=== PATIENT | female | born 1995 | race Caucasian/White ===

== ENCOUNTER 2021-11-17 14:39 | Emergency (ER) | payer OTHER ==
--- OUTSIDE RECORDS SUMMARY | 2021-11-17 15:08 | EXTERNAL MEDICAL SUMMARY RPT | Continuity of Care Document ---
:1995 Author Organization [facility] Address [address] [place] [address] Phone Care Team Providers Name Role Phone LUCINDA, Loyd Porter Unavailable Unavailable Allergies No information. Encounters No information. Medications No information. Problems date description facility 20211019 Pain in throat All 20211019 Acute pharyngitis, unspecified All 20211019 Acute pharyngitis All Procedures date description facility 20211019 POC STREP TEST All Results test status date ordered by attending specimen pepe e Streptococcus_pyogenes unknown 20211019 unknown unknown unknown _DNA_Presence_in_Throat _by_NAA_with_probe_dete ction Microbial_identificati unknown 20211019 unknown unknown unknown on_kit_rapid_strep_meth od facility observation status value reference units lab abnor mal line range code notes All Streptococcus unknown Neg unknown _6048 unknow n unknown _pyogenes_DNA_ 9-2 Presence_in_Th roat_by_NAA_wi th_probe_detec tion All Microbial_ide unknown Neg unknown _3554 unknow n unknown ntification_ki t_rapid_strep_ method Vital Signs date measurement value source 20211019 weight_standard 180 lb 20211019 weight_metric 81.65 kg 20211019 temperature_standard 98.1 F 20211019 temperature_metric 36.72 C 20211019 respiration_rate 14 /min 20211019 height_standard 66 in 20211019 height_metric 167.64 cm 20211019 heart_rate 75 /min 20211019 BP_systolic 120 mm[Hg] 20211019 BP_diastolic 82 mm[Hg] 20211019 BMI 29.16 kg/m2
[2021-11-17 15:11] LABS: BASOPHILS % (AUTO) 0.5 %; EOSINOPHILS # (AUTO) 0.1 10^3/uL (0.0-0.7); EOSINOPHILS % (AUTO) 1.1 %; HCT - HEMATOCRIT 41.1 % (37.0-47.0); HGB - HEMOGLOBIN 14.2 g/dL (12.0-16.0); LYMPHOCYTES # (AUTO) 0.9 10^3/uL (1.5-3.5); LYMPHOCYTES % (AUTO) 15.5 %; MEAN CORPUSCULAR HEMOGLOBIN 28.5 pg (27.0-31.0); MEAN CORPUSCULAR HGB CONC 34.5 g/dL (32.0-36.0); MEAN CORPUSCULAR VOLUME 82.4 fL (81.0-99.0); MEAN PLATELET VOLUME 10.9 fL (7.9-10.8); MONOCYTES # (AUTO) 0.7 10^3/uL (0.0-1.0); MONOCYTES % (AUTO) 12.1 %; NEUTROPHILS # (AUTO) 3.9 10^3/uL (1.5-6.6); NEUTROPHILS % (AUTO) 70.6 %; PLT - PLATELET COUNT 258 10^3/uL (130-450); RED BLOOD COUNT 4.99 10^6/uL (4.20-5.40); RED CELL DISTRIBUTION WIDTH 12.6 % (12.0-15.0); WHITE BLOOD COUNT 5.6 x10^3/uL (4.8-10.8)
--- NOTE | 2021-11-17 15:13 | ED Physician Documentation ---
History of Present Illness - Stated complaint Stated Complaint: NAUSEA,DIZZINESS,ABD PX - Chief complaint Chief Complaint: Abd Pain - Additonal information Additional information: 26-year-old female presents emergency department for evaluation of acute lower abdominal/pelvic pain. She reports this morning she woke up feeling a little nauseated and dizzy but did not think much of it. Just prior to arrival she was on the floor at home playing with her kids and she laid on her stomach and felt a sudden sharp pain in her lower abdomen that caused her to cry immediately. Though the pain has abated somewhat she still feels it. She doubts possibility of she has an IUD in place for the last 2 months. However her first IUD was complicated by migration of the IUD into the myometrium. She is concerned that this has happened again. Since the second IUD was placed she has not been able to feel the strings. No fevers, no vomiting. No dysuria urgency or frequency. Past medical/surgical history includes x2 only Review of Systems Constitutional: reports: Reviewed and negative Ears: reports: Reviewed and negative Nose: reports: Reviewed and negative Throat: reports: Reviewed and negative Cardiac: reports: Reviewed and negative Respiratory: reports: Reviewed and negative GI: reports: Abdominal Pain, Nausea : reports: Reviewed and negative Skin: reports: Reviewed and negative Musculoskeletal: reports: Reviewed and negative PD PAST MEDICAL HISTORY - Allergies Allergies/Adverse Reactions: Allergies Allergy/AdvReac Type Severity Reaction Status Date / Time No Known Drug Allergies Allergy Verified 11/17/21 14:48 PD ED PE NORMAL - General General: Alert and oriented X 3, No acute distress - HEENT HEENT: Atraumatic, Moist mucous membranes - Neck Neck: Supple, no meningeal sign - Cardiac Cardiac: RRR, No murmur - Respiratory Respiratory: No respiratory distress - Abdomen Abdomen: Normal bowel sounds, Soft, Non tender (Mild tenderness in the lower pelvic suprapubic region without guarding or rebound. Nonlocalizing.) - Female Female : Movement Therapist present, Other (Chaperoned pelvic exam reveals IUD strings exiting the cervix. No CMT or adnexal tenderness. Mild tenderness of the uterus without enlargement felt) - Back Back: No CVA TTP, No spinal TTP Results - Vitals Vitals: Vital Signs - 24 hr 11/17/21 14:46 Temperature 36.8 C Heart Rate 88 Respiratory 16 Rate Blood Pressure 133/75 H O2 Saturation 98 Oxygen O2 Source Room air - Labs Labs: Laboratory Tests 11/17/21 11/17/21 11/17/21 15:03 15:03 15:10 WBC 5.6 RBC 4.99 Hgb 14.2 Hct 41.1 MCV 82.4 MCH 28.5 MCHC 34.5 RDW 12.6 Plt Count 258 MPV 10.9 H Neut # (Auto) 3.9 Lymph # (Auto) 0.[address] [place] # (Auto) 0.7 Eos # (Auto) 0.1 Baso # (Auto) 0.0 Absolute Nucleated RBC 0.00 Nucleated RBC % 0.0 Sodium 138 Potassium 3.9 Chloride 105 Carbon Dioxide 25 Anion Gap 8.0 BUN 11 Creatinine 0.7 Estimated GFR (MDRD) 101 Glucose 105 H Calcium 8.8 Total Bilirubin 0.8 AST 21 ALT 22 Alkaline Phosphatase 88 Total Protein 7.4 Albumin 4.1 Globulin 3.3 Albumin/Globulin Ratio 1.2 Lipase 36 Urine Color YELLOW Urine Clarity CLEAR Urine pH 6.5 Ur Specific Crow[place] 1.025 Urine Protein NEGATIVE Urine Glucose (UA) NEGATIVE Urine Ketones TRACE Urine Occult Blood NEGATIVE Urine Nitrite NEGATIVE Urine Bilirubin NEGATIVE Urine Urobilinogen 0.2 (NORMAL) Ur Leukocyte Esterase NEGATIVE Ur Microscopic Review NOT INDICATED Urine Culture Comments NOT INDICATED Urine HCG, Qual NEGATIVE - Rads (name of study) pelvic US Radiology: Final report received (IUD in place. Right ovarian hemorrhagic cyst. Both ovaries show flow Small amount of free fluid in the adnexa) PD MEDICAL DECISION MAKING - ED course Complexity details: reviewed results, re-evaluated patient, considered differential, d/w patient ED course: 26-year-old female presents emergency department for evaluation of acute lower pelvic discomfort that occurred when she laid on the floor this morning. She has a past surgical history most significant for x3. She was concerned because she has an IUD in place for the last few months and her previous IUD had migrated into the myometrium requiring surgical removal. On exam she had lower midline pelvic tenderness. I did do a chaperoned pelvic exam and found the IUD strings exiting the cervix. She had a mildly tender uterus without enlargement. No CMT. A pelvic ultrasound was completed and it does show the IUD in place. There is a right ovarian hemorrhagic cyst with a small amount of free fluid in the adnexa. Given unremarkable vitals and labs will defer further imaging as my suspicion for torsion is rather low. Clinically without fever or vomiting I have low suspicion for acute appendicitis. Symptoms markedly improved using Toradol at the bedside. Patient will be discharged with recommendation for ibuprofen at home. Follow-up with PCP. Emergent worrisome return precautions were discussed. Departure - Departure Disposition: Home, Self Care Clinical Impression: Hemorrhagic cyst of right ovary Condition: Stable Record reviewed to determine appropriate education?: Yes Instructions: ED Cyst Ovarian Comments: Antoinette you were seen today in the emergency department for sudden onset pain in your lower pelvic region. We did do an ultrasound that confirms your IUD is in place and in appropriate position. You do have a hemorrhagic right ovarian cyst. These can on rupture and sometimes cause a little bit of bleeding which can be very uncomfortable. Your screening labs and vital signs today are otherwise normal. I recommend that you take 600 mg of ibuprofen with food 2-3 times a day or alternate 500 mg of Tylenol. Please discuss this ED visit with your primary care provider. If you develop fevers, suddenly severe or different pain uncontrolled vomiting then please return to the emergency department for a second evaluation
[2021-11-17 15:25] LABS: ALBUMIN 4.1 g/dL (3.2-5.5); ALBUMIN/GLOBULIN RATIO 1.2 (1.0-2.2); BILIRUBIN,TOTAL 0.8 mg/dL (0.2-1.0); CALCIUM 8.8 mg/dL (8.5-10.3); CREATININE 0.7 mg/dL (0.4-1.0); POTASSIUM 3.9 mmol/L (3.5-5.0); TOTAL PROTEIN 7.4 g/dL (6.7-8.2)
[2021-11-17 15:34] LABS: BILIRUBIN,URINE NEGATIVE (NEGATIVE); GLUCOSE, URINE (UA) NEGATIVE (NEGATIVE); KETONES,URINE (UA) TRACE mg/dL (NEGATIVE); LEUKOCYTE ESTERASE, URINE NEGATIVE (NEGATIVE); NITRITE,URINE NEGATIVE (NEGATIVE); OCCULT BLOOD,URINE NEGATIVE (NEGATIVE); PH,URINE 6.5 PH (5.0-7.5); PROTEIN,URINE NEGATIVE (NEGATIVE); UROBILINOGEN,URINE 0.2 (NORMAL) E.U./dL (NORMAL)
[2021-11-17 15:37] LABS: CLARITY,URINE CLEAR (CLEAR); HCG UR QUAL NEGATIVE
[2021-11-17] MEDS: KETOROLAC 60 MG/2 ML VIAL IM STA (15:49)
--- NOTE | 2021-11-17 16:46 | Ultrasound Report ---
PROCEDURE: Pelvic w/Transvaginal INDICATIONS: LOCATION OF IUD? TECHNIQUE: Real-time scanning was performed of the pelvic organs, with image documentation. Additional endovagi nal scanning was necessary due to incomplete visualization of the adnexal and endometrial structures by transabdominal scanning. COMPARISON: None. FINDINGS: Limited scanning through the kidneys shows no hydronephrosis. No pathologic free abdominal or pelvic fluid. Uterus: Uterus is normal in size at 8.2 x 4.4 x 5.5 cm. The endometrium measures 7.3 mm in combined thickness. Uterus has normal echotexture. Intrauterine device centrally positioned within the uterus . Single color Doppler image of the right ovary demonstrates vascular flow. IMPRESSION: Intrauterine device is centrally positioned within the uterus. Reviewed by: Mireille Jasso MD, PhD on 11/17/2021 4:45 PM PDT Approved by: Mireille Jasso MD, PhD on 11/17/2021 4:45 PM PDT Station ID: [id number]
[2021-11-17 16:51] VITALS: BP 121/85
== END 2021-11-17 17:06 | disposition home or self-care (01) ==
LOC: ED 14:39
DX: N83.201 Unspecified ovarian cyst, right side (principal)
CPT/HCPCS: 36415; 80053; 81001; 81003; 81025; 83690; 85025; 87086; 96372; 99282; 99284

== ENCOUNTER 2021-11-18 13:40 | Emergency (ER) | payer OTHER ==
--- OUTSIDE RECORDS SUMMARY | 2021-11-18 14:04 | EXTERNAL MEDICAL SUMMARY RPT | Continuity of Care Document ---
:1995 Author Organization [facility] Address [address] [place] [address] Phone Care Team Providers Name Role Phone [...]
[2021-11-18] MEDS ORDERED: KETOROLAC 15 MG/ML VIAL IVP STA (14:15)
[2021-11-18] MEDS ORDERED: SODIUM CHLORIDE 0.9% 1,000 ML IV STA (14:15)
[2021-11-18] MEDS ORDERED: METOCLOPRAMIDE 10 MG/2 ML VIAL IVP STA (14:15)
--- NOTE | 2021-11-18 14:16 | ED Physician Documentation ---
PD HPI NVD - Stated complaint Stated Complaint: FEMALE - Chief complaint Chief Complaint: Abd Pain - History obtained from History obtained from: Patient - Additonal information Additional information: 26-year-old woman with history of IUD in place and x2, no other abdominal surgeries. She was seen yesterday for sudden onset pelvic pain starting earlier in the day. Subsequently had labs which were unremarkable and a pelvic exam showing appropriate placement of the IUD. She continues to have severe vertigo that actually preceded the pain associated with nausea and vomiting. No headache. Vertigo is worse if she lays on her side or turns her head. Review of Systems Ten Systems: 10 systems reviewed and negative Constitutional: denies: Fever, Chills Respiratory: denies: Dyspnea, Cough GI: reports: Abdominal Pain, Nausea, Vomiting. denies: Constipation, Diarrhea : denies: Dysuria, Frequency, Hesitancy PD PAST MEDICAL HISTORY - Past Medical History Past Medical History: Yes Cardiovascular: None Respiratory: None Neuro: None Endocrine/Autoimmune: None GI: None PRODUCTION LINE SOLDERER: Ovarian cysts : None HEENT: None Psych: Depression, Anxiety Musculoskeletal: None Derm: None - Past Surgical History Past Surgical History: Yes /PRODUCTION LINE SOLDERER: section - Present Medications Home Medications: Ambulatory Orders Medication Instructions Recorded Confirmed Meclizine HCl [Motion Sickness] 25 mg PO Q6H PRN #20 tablet 11/18/21 Ondansetron Odt [Zofran] 4 mg TL Q6H PRN #10 tablet 11/18/21 Oxycodone HCl/Acetaminophen 1 - 2 each PO Q6H PRN #14 tablet 11/18/21 [Percocet 5-325 mg Tablet] - Allergies Allergies/Adverse Reactions: Allergies Allergy/AdvReac Type Severity Reaction Status Date / Time No Known Drug Allergies Allergy Verified 11/18/21 13:43 - Social History Does the pt smoke?: No Smoking Status: Never smoker Does the pt drink ETOH?: No Does the pt have substance abuse?: No - Immunizations Immunizations are current?: Yes PD ED PE NORMAL - Vitals Vital signs reviewed: Yes - General General: Alert and oriented X 3, No acute distress - HEENT HEENT: PERRL, EOMI (Horizontal nystagmus especially on rightward gaze) - Neck Neck: Supple, no meningeal sign, No bony TTP - Cardiac Cardiac: RRR, No murmur - Respiratory Respiratory: No respiratory distress, Clear bilaterally - Abdomen Abdomen: Other (Right hemipelvic tenderness well below McBurney's point without surgical signs.) - Back Back: No CVA TTP, No spinal TTP - Derm Derm: Normal color, Warm and dry - Extremities Extremities: No edema, No calf tenderness / cord - Neuro Neuro: Alert and oriented X 3, cash controller 2-12 intact, No motor deficit, No sensory deficit, Normal speech, Other (No finger-nose or livr-cs-ydxr ataxia) Eye Opening: Spontaneous Motor: Obeys Commands Verbal: Oriented GCS Score: 15 Results - Vitals Vitals: Vital Signs - 24 hr 11/18/21 11/18/21 11/18/21 13:43 13:48 17:06 Temperature 36.7 C 36.7 C 36.5 C Heart Rate 77 77 76 Respiratory 20 20 16 Rate Blood Pressure 132/95 H 132/95 H 116/68 O2 Saturation 100 100 99 Oxygen O2 Source Room air - Labs Labs: Laboratory Tests 11/18/21 11/18/21 11/18/21 14:50 14:50 15:59 WBC 8.5 RBC 5.16 Hgb 14.9 Hct 42.1 MCV 81.6 MCH 28.9 MCHC 35.4 RDW 12.7 Plt Count 239 MPV 11.2 H Neut # (Auto) 6.7 H Lymph # (Auto) 0.8 L [place] # (Auto) 0.8 Eos # (Auto) 0.2 Baso # (Auto) 0.0 Absolute Nucleated RBC 0.00 Nucleated RBC % 0.0 Sodium 139 Potassium 3.7 Chloride 107 Carbon Dioxide 23 Anion Gap 9.0 BUN 13 Creatinine 0.7 Estimated GFR (MDRD) 101 Glucose 100 Calcium 8.8 Total Bilirubin 0.8 AST 24 ALT 24 Alkaline Phosphatase 84 Total Protein 7.4 Albumin 4.1 Globulin 3.3 Albumin/Globulin Ratio 1.2 Lipase 34 Urine Color YELLOW Urine Clarity CLEAR Urine pH 6.0 Ur Specific [place] 1.025 Urine Protein NEGATIVE Urine Glucose (UA) NEGATIVE Urine Ketones TRACE Urine Occult Blood NEGATIVE Urine Nitrite NEGATIVE Urine Bilirubin NEGATIVE Urine Urobilinogen 0.2 (NORMAL) Ur Leukocyte Esterase NEGATIVE Ur Microscopic Review NOT INDICATED Urine Culture Comments NOT INDICATED Urine HCG, Qual NEGATIVE - Rads (name of study) Ct A/P Radiology: EMP read contemporaneously PD MEDICAL DECISION MAKING - ED course ED course: 26-year-old woman presents with vertigo and vomiting preceding lower abdominal pain. Seen yesterday and worse today with normal labs yesterday. All symptoms are worse today. Based on her examination and symptomatology the vertigo sounds peripheral. Not sure how the vertigo and abdominal pain would be related. Her pain was much better after some IV Dilaudid and Toradol and her vertigo was only mildly relieved with IV Reglan and this is followed by meclizine. She had persistent tenderness in the right lower quadrant and although her white count still remains normal today, it has risen and is now with a mild left shift as such a CT will be ordered. CT showing some pelvic free fluid but otherwise negative. She was feeling much better after the meclizine. Given close return precautions. Departure - Departure Disposition: Home, Self Care Clinical Impression: Hemorrhagic cyst of right ovary, Peripheral vertigo involving left ear Condition: Good Record reviewed to determine appropriate education?: Yes Instructions: ED Pelvic Pain [facility] Prescriptions: Meclizine HCl [Motion Sickness] 25 mg PO Q6H PRN #20 tablet PRN Reason: Dizziness Oxycodone HCl/Acetaminophen [Percocet 5-325 mg Tablet] 1 - 2 each PO Q6H PRN #14 tablet PRN Reason: pain Ondansetron Odt [Zofran] 4 mg TL Q6H PRN #10 tablet PRN Reason: Nausea / Vomiting Comments: I sent your prescriptions [facility] in [place]. Return if worsening, follow-up with your doctor on around Saturday if not improving. I am prescribing a short course of narcotic pain medication for you. These are potentially dangerous and addictive medications that should be used carefully. These medications may constipate you. Take an stgq-dxc-jlqqdid stool softener (docusate) twice daily with plenty of water while taking these medications. If you go 24 hours without a bowel movement, take jdtj-kgw-dstpkts miralax, per package instructions. Do not drink or drive while taking these medications. If you received narcotic or sedating medications while in the emergency department, do not drive for 24 hours. Store this medication in a safe, secure place and out of reach of children. It is a violation of federal law to give or sell this medication to another person or to use in a manner other than prescribed. The ED will not refill narcotic prescriptions, including prescriptions lost or stolen. To dispose of unwanted medications: 1. [facility] at [address] in [place] has a medication drop box. They accept prescription medications (in pill form) Saturday through Saturday 9:00 a.m. to 5:00 p.m. 2. [facility] accepts prescription medications (in pill form only) for disposal year round. Call for more information. 3. Contact the [facility] for the next [facility] sponsored prescription drug collection event. , [phone], or [phone]; Note that many narcotic pain relievers also contain Tylenol/acetaminophen. Please ensure that your total dose of acetaminophen from all sources does not exceed 3 g (3000 mg) per day. Forms: Activity restrictions Discharge Date/Time: 11/18/21 17:07
[2021-11-18 14:57] LABS: BASOPHILS % (AUTO) 0.2 %; EOSINOPHILS # (AUTO) 0.2 10^3/uL (0.0-0.7); HCT - HEMATOCRIT 42.1 % (37.0-47.0); HGB - HEMOGLOBIN 14.9 g/dL (12.0-16.0); LYMPHOCYTES # (AUTO) 0.8 10^3/uL (1.5-3.5); LYMPHOCYTES % (AUTO) 9.3 %; MEAN CORPUSCULAR HEMOGLOBIN 28.9 pg (27.0-31.0); MEAN CORPUSCULAR HGB CONC 35.4 g/dL (32.0-36.0); MEAN CORPUSCULAR VOLUME 81.6 fL (81.0-99.0); MEAN PLATELET VOLUME 11.2 fL (7.9-10.8); MONOCYTES # (AUTO) 0.8 10^3/uL (0.0-1.0); MONOCYTES % (AUTO) 8.9 %; NEUTROPHILS # (AUTO) 6.7 10^3/uL (1.5-6.6); NEUTROPHILS % (AUTO) 79.4 %; PLT - PLATELET COUNT 239 10^3/uL (130-450); RED BLOOD COUNT 5.16 10^6/uL (4.20-5.40); RED CELL DISTRIBUTION WIDTH 12.7 % (12.0-15.0); WHITE BLOOD COUNT 8.5 x10^3/uL (4.8-10.8)
[2021-11-18 15:10] LABS: ALBUMIN 4.1 g/dL (3.2-5.5); ALBUMIN/GLOBULIN RATIO 1.2 (1.0-2.2); BILIRUBIN,TOTAL 0.8 mg/dL (0.2-1.0); CALCIUM 8.8 mg/dL (8.5-10.3); CREATININE 0.7 mg/dL (0.4-1.0); POTASSIUM 3.7 mmol/L (3.5-5.0); TOTAL PROTEIN 7.4 g/dL (6.7-8.2)
[2021-11-18] MEDS ORDERED: MECLIZINE 12.5 MG TABLET PO STA (15:17)
[2021-11-18] MEDS ORDERED: IOVERSOL 320 50 ML VIAL ONE (15:32)
[2021-11-18 16:03] LABS: BILIRUBIN,URINE NEGATIVE (NEGATIVE); GLUCOSE, URINE (UA) NEGATIVE (NEGATIVE); KETONES,URINE (UA) TRACE mg/dL (NEGATIVE); LEUKOCYTE ESTERASE, URINE NEGATIVE (NEGATIVE); NITRITE,URINE NEGATIVE (NEGATIVE); OCCULT BLOOD,URINE NEGATIVE (NEGATIVE); PROTEIN,URINE NEGATIVE (NEGATIVE); UROBILINOGEN,URINE 0.2 (NORMAL) E.U./dL (NORMAL)
[2021-11-18 16:06] LABS: CLARITY,URINE CLEAR (CLEAR); HCG UR QUAL NEGATIVE
[2021-11-18] MEDS ORDERED: IOVERSOL 320 50 ML VIAL IVP ONE (16:27)
--- NOTE | 2021-11-18 16:46 | CT Report ---
PROCEDURE: Abdomen/Pelvis W INDICATIONS: IV only, RLQ pain CONTRAST: IV CONTRAST: Optiray 320 ml: 100 PO CONTRAST: *NO PO CONTRAST TECHNIQUE: After the administration of contrast, 5 mm thick sections acquired from the diaphragms to the sym physis. 5 mm thick coronal and sagittal reformats were acquired. For radiation dose reduction, the following was used: automated exposure control, adjustment of mA and/or kV according to patient size . COMPARISON: None. FINDINGS: Image quality: Excellent. ABDOMEN: Lung bases: Lung bases are clear. Heart size is normal. Solid organs: Liver and spleen are normal in size and enhancement. Gallbladder unremarkable. Bilia ry system is non dilated. Pancreas enhances normally. No adrenal nodules. Kidneys demonstrate norm al size and enhancement, without hydronephrosis. Peritoneum and bowel: Bowel loops demonstrate normal wall thickness and caliber. No free fluid or a ir. Normal appendix identified Nodes and vessels: No retroperitoneal or mesenteric adenopathy by size criteria. Aorta and inferior vena cava are normal in size. Miscellaneous: No ventral hernias. PELVIS: Genitourinary: Bladder wall thickness is normal. Intrauterine device noted in place. Miscellaneous: No inguinal hernias or adenopathy. Small amount of free fluid in the pelvis Bones: No suspicious bony lesions. No vertebral body compression fractures. IMPRESSION: 1. Normal appendix. No evidence of appendicitis. 2. Small amount of free fluid in the pelvis. Consider ultrasound pelvis correlation. 3. Intrauterine device in place Reviewed by: Pantera Goodman MD on 11/18/2021 3:45 PM AKDT Approved by: Pantera Goodman MD on 11/18/2021 3:45 PM AKDT Station ID: [id number]
[2021-11-18 17:07] VITALS: BP 116/68
== END 2021-11-18 17:07 | disposition home or self-care (01) ==
LOC: ED 13:40
DX: H81.392 Other peripheral vertigo, left ear (principal); N83.201 Unspecified ovarian cyst, right side
CPT/HCPCS: 36415; 74177; 80053; 81003; 81025; 83690; 85025; 96374; 96375; 99284; A9270; J2765; 81001; 87086